=== PATIENT | male | born 1995 | race Caucasian/White ===

== ENCOUNTER 2019-11-07 15:41 | Emergency (ER) | payer OTHER ==
[2019-11-07 15:49] VITALS: BP 129/74
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
== END 2019-11-07 16:57 | disposition home or self-care (01) ==
LOC: ER 15:41
DX: S40.012A Contusion of left shoulder, initial encounter (principal); S00.83XA Contusion of other part of head, initial encounter; V89.2XXA Person injured in unspecified motor-vehicle accident, traffic, initial encounter; Z88.0 Allergy status to penicillin
CPT/HCPCS: 99283